=== PATIENT | female | born 1965 | race American Indian/Alaskan Native ===

== ENCOUNTER 2021-09-19 07:57 | Day surgery (SDC) | payer OTHER ==
[2021-09-19] MEDS ORDERED: LACTATED RINGERS 1,000 ML ONE (08:38)
[2021-09-19 09:52] LABS: Hematocrit 36.8 % (30.3-42.9); Hemoglobin 11.9 gm/dl (10.1-14.3); Mean Corpuscular HGB Conc 32 % (30-34); Mean Corpuscular Volume 94 fl (79-97); Platelet Count 108 K/mm3 (140-440); Red Blood Count 3.92 M/mm3 (3.65-5.03); Red Cell Distribution Width 16.3 % (13.2-15.2)
[2021-09-19] MEDS ORDERED: ACETAMINOPHEN 500 MG TAB PO NR (09:53)
[2021-09-19] MEDS ORDERED: MAGNESIUM OXIDE 400 MG TAB PO NR (09:53)
[2021-09-19] MEDS ORDERED: ONDANSETRON 4 MG/2 ML INJ IV PRN (09:53)
[2021-09-19] MEDS ORDERED: HYDROmorphone 0.5 MG/0.5 ML INJ IV PRN ×2 (09:53→10:30)
[2021-09-19] MEDS ORDERED: BUPIVACAINE/PF (0.5%) 5 MG/1 ML 30 ML VIAL INFILTRATI ONE (09:54)
[2021-09-19] MEDS ORDERED: EPINEPHrine/PF 1 MG/1 ML INJ ONE (09:54)
--- NOTE | 2021-09-19 09:54 | Anesthesia Day of Surgery ---
Anesthesia Day of Surgery - Day of Surgery Patient Examined: Yes Patient H&P Reviewed: Yes Patient is NPO: Yes
[2021-09-19 09:56] LABS: Blood Urea Nitrogen 13 mg/dL (7-17); Calcium 9.4 mg/dL (8.4-10.2); Hemolysis Index 18
[2021-09-19 09:57] LABS: BUN/Creatinine Ratio 19
--- NOTE | 2021-09-19 09:57 | Anesthesia Consultation ---
Anesthesia Consult and Med Hx Date of service: 09/19/21 - Airway Anesthetic Teeth Evaluation: Good ROM Head & Neck: Adequate Mental/Hyoid Distance: Adequate Mallampati Class: Class II Intubation Access Assessment: Good - Pre-Operative Health Status ASA Pre-Surgery Classification: ASA3 Proposed Anesthetic Plan: General - Pulmonary Hx Smoking: Yes (1/2 PPD X 5 YRS) Hx Sleep Apnea: Yes (DX SLEEP APNEA , NO CPAP USE) - Cardiovascular System Hx Hypertension: No (LOW BP) - Central Nervous System Hx Psychiatric Problems: Yes (Anxiety/Depression) - Gastrointestinal Hx Gastroesophageal Reflux Disease: No (Feeding tube;hx colitis) - Hematic Hx Anemia: Yes Hx Sickle Cell Disease: No - Other Systems Hx Cancer: No Hx Obesity: No - Additional Comments Anesthesia Medical History Comments: Patient reports K of 3.6 done last week. PLT 108
[2021-09-19] MEDS ORDERED: LACTATED RINGERS 1,000 ML IV SCH (10:00)
[2021-09-19] MEDS ORDERED: CELECOXIB 200 MG CAP PO NR (10:00)
[2021-09-19] MEDS ORDERED: ceFAZolin/Water 2 GM/20 ML 2 GM/20 ML SYRINGE IV ONE (10:45)
[2021-09-19] MEDS ORDERED: ceFAZolin/STERILE WATER 2 GM/20 ML SYRINGE IV NR (10:45)
[2021-09-19] MEDS ORDERED: propofoL 200 MG/20 ML VIAL IV ONE (11:04)
[2021-09-19] MEDS ORDERED: HYDROmorphone 1 MG/1 ML INJ ONE (11:04)
[2021-09-19] MEDS ORDERED: dexAMETHasone 20 MG/5 ML VIAL ONE (11:27)
[2021-09-19] MEDS ORDERED: LIDOCAINE MPF (2%) 20 MG/1 ML VIAL 5 ML ONE (11:27)
[2021-09-19] MEDS ORDERED: SODIUM CHLORIDE 0.9% IRRIG SOLN 3000 ML IR ONE (11:32)
[2021-09-19] MEDS ORDERED: BUPIVACAINE/PF (0.25%) 2.5 MG/ML 30 ML VIAL INFILTRATI ONE ×2 (11:37→11:57)
[2021-09-19] MEDS ORDERED: EPINEPHrine 1 MG/10 ML SYRINGE IV ONE (11:56)
[2021-09-19] MEDS ORDERED: SODIUM CHLORIDE 0.9% IRR 1,000 ML BOTTLE IR ONE (11:57)
[2021-09-19] MEDS ORDERED: KETOROLAC 30 MG/1 ML INJ ONE (12:26)
[2021-09-19] MEDS ORDERED: ONDANSETRON 4 MG/2 ML INJ ONE (12:26)
--- NOTE | 2021-09-19 12:44 | Discharge Summary ---
Short Stay Discharge Plan Weight Bearing Status: Weight Bear as Tolerated (With crutches) Wound: change dressing (In 48 hours) Durable Medical Equipment Needed Upon Discharge: Crutches Follow up with: ABELARDO MEHTA [Other] - 7 Days BEVERLY RODRIGUEZ II, MD [Staff Physician] - 14 Days
--- NOTE | 2021-09-19 13:01 | Operative Report ---
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 PROCEDURE PERFORMED: Left knee partial medial meniscectomy and lateral patellar facetectomy. SURGEON: Clayton Cohen II, MD LUMBER PILER: None. ANESTHESIA: General. COMPLICATIONS: None. DRAINS: None. SPECIMENS: None. TOURNIQUET TIME: 58 minutes. PREOPERATIVE MEDICATIONS: Ancef 2 grams administered 30 minutes prior to skin incision. INTRAOPERATIVE MEDICATIONS: 0.25% Marcaine plain, 20 mL. INDICATIONS: The patient is a 55-year-old female who has been having refractory pain in the left knee. Evaluation workup shows she does have a medial meniscus tear as well as chondromalacia patella, it was recommended the patient undergo surgical treatment in the form of partial lateral facetectomy and partial medial meniscectomy. INTRAOPERATIVE FINDINGS: Include grade 3 chondromalacia of the patellofemoral joint and tearing of the posterior horn of the medial meniscus and the red-white zone near the meniscal root with some grade 2 chondromalacia on the medial femoral condyle. TECHNIQUE: In the preoperative holding area, site was marked with surgical marking pen. Extremity was prepped and draped in sterile fashion in supine position. Standard anteromedial and anterolateral portals were placed. Diagnostic arthroscopy was performed. Patellofemoral joint was noted to have some grade 3 changes in the trochlea, some osteophytes along the medial and lateral facet of the femoral condyle. The ACL was intact. The medial joint line showed a tear in the posterior horn of the medial meniscus extending into the red-white zone. Using oscillating shaver and biter, the meniscus was debrided back to a stable rim. The lateral compartment appeared to be normal with signs and evidence of previous partial lateral meniscectomy. A lateral parapatellar incision was made. Dissection was carried down through the underlying soft tissue to the level of the patellar retinaculum, which was incised sharply. A 15 mm of the lateral facet of the patella was resected using an oscillating saw. The wound was irrigated. The retinacular incision was closed with 0 Vicryl, subcutaneous tissue closed with 2-0 Vicryl and skin closed with a 3-0 Prolene. Incisions were injected with 0.25% Marcaine. The patient was awakened and taken to recovery room in stable condition. POSTOPERATIVE PLAN: The patient will be weightbear as tolerated. Do physical therapy to work on range of motion exercise, told the patient we will see her back for a followup visit 2 weeks postop. TID: [id number] RECEIPT: [id number] ROSA M/KAYLAH
[2021-09-19] MEDS ORDERED: oxyCODONE /ACETAMINOPHEN 5-325MG TAB PO PRN (14:12)
[2021-09-19 17:42] VITALS: BP 115/61
--- NOTE | 2021-09-19 19:54 | Post Anesthesia Evaluation ---
- Post Anesthesia Evaluation Patient Participated: Yes Airway Patent: Yes Stable Respiratory Function: Yes Nausea/Vomiting: No Temp > 96.8F: Yes Pain Manageable: Yes Adequeate Hydration: Yes Anesthesia Complications: No Block Receding Appropriately: Not Applicable Patient on Ventilator: No
== END 2021-09-19 14:15 | disposition home or self-care (01) ==
LOC: OR 07:57
PROVIDERS: ATTEND Orthopaedic Surgery Sports Medicine
DX: S83.242A Other tear of medial meniscus, current injury, left knee, initial encounter (principal); M23.304 Other meniscus derangements, unspecified medial meniscus, left knee; F17.210 Nicotine dependence, cigarettes, uncomplicated; I10 Essential (primary) hypertension; G47.30 Sleep apnea, unspecified; K21.9 Gastro-esophageal reflux disease without esophagitis; F32.9 Major depressive disorder, single episode, unspecified; F41.9 Anxiety disorder, unspecified; D64.9 Anemia, unspecified; Z98.890 Other specified postprocedural states; Z79.899 Other long term (current) drug therapy
CPT/HCPCS: 27599; 29881; 36415; 80048; 85027; 88304; 88311; J0171; J0690; J1100; J1170; J1885; J2405; J2704; J3490; J7120

== ENCOUNTER 2021-12-04 06:18 | Day surgery (SDC) | payer OTHER ==
[~2021-12-04 06:18] MED LIST: ACETAMINOPHEN 500 MG TAB PO SCH; GABAPENTIN 300 MG CAP PO NR; LACTATED RINGERS 1,000 ML IV SCH; MIDAZOLAM 2 MG/2 ML INJ IV NR; ceFAZolin/STERILE WATER 2 GM/20 ML SYRINGE IV NR
[2021-12-04] MEDS ORDERED: BACTERIOSTATIC SODIUM CHLORIDE 0.9% 30 ML VIAL INFILTRATI ONE (06:56)
--- NOTE | 2021-12-04 07:16 | Anesthesia Consultation ---
Anesthesia Consult and Med Hx Date of service: 12/04/21 - Airway Anesthetic Teeth Evaluation: Good ROM Head & Neck: Adequate Mental/Hyoid Distance: Adequate Mallampati Class: Class II Intubation Access Assessment: Probably Good - Pre-Operative Health Status ASA Pre-Surgery Classification: ASA3 Proposed Anesthetic Plan: General - Pulmonary Hx Smoking: Yes (1/2 PPD) Hx Respiratory Symptoms: No Hx Sleep Apnea: Yes (no CPAP) - Cardiovascular System Hx Hypertension: No (hypotension on midodrine weaned to QOD; last dose 12/03/21) - Central Nervous System CVA: No Hx Psychiatric Problems: Yes (Anxiety/Depression) - Endocrine Hx Renal Disease: No Hx Liver Disease: No Hx Insulin Dependent Diabetes: No Hx Non-Insulin Dependent Diabetes: No Hx Thyroid Disease: No - Hematic Hx Anemia: Yes - Additional Comments Anesthesia Medical History Comments: No hx anesthetic complications.
[2021-12-04] MEDS ORDERED: ONDANSETRON 4 MG/2 ML INJ IV PRN (07:17)
[2021-12-04] MEDS ORDERED: oxyCODONE /ACETAMINOPHEN 5-325MG TAB PO PRN (07:17)
--- NOTE | 2021-12-04 07:17 | Anesthesia Day of Surgery ---
Anesthesia Day of Surgery - Day of Surgery Patient Examined: Yes Patient H&P Reviewed: Yes Patient is NPO: Yes
[2021-12-04 07:27] LABS: Hematocrit 38.1 % (30.3-42.9); Hemoglobin 13.2 gm/dl (10.1-14.3); Mean Corpuscular HGB Conc 35 % (30-34); Mean Corpuscular Volume 92 fl (79-97); Platelet Count 129 K/mm3 (140-440); Red Blood Count 4.13 M/mm3 (3.65-5.03); Red Cell Distribution Width 15.1 % (13.2-15.2)
[2021-12-04] MEDS ORDERED: EPINEPHrine/PF 1 MG/1 ML INJ ONE (07:29)
[2021-12-04] MEDS ORDERED: BUPIVACAINE-EPINEPHRINE/PF 0.5%-1:200,000 (30 ML) VIAL INFILTRATI ONE (07:29)
[2021-12-04 07:40] LABS: BUN/Creatinine Ratio 16; Blood Urea Nitrogen 13 mg/dL (7-17); Calcium 9.6 mg/dL (8.4-10.2); Hemolysis Index 13
[2021-12-04] MEDS ORDERED: dexAMETHasone 20 MG/5 ML VIAL ONE (07:45)
[2021-12-04] MEDS ORDERED: ONDANSETRON 4 MG/2 ML INJ ONE (07:45)
[2021-12-04] MEDS ORDERED: LIDOCAINE MPF (2%) 20 MG/1 ML VIAL 5 ML ONE (07:45)
[2021-12-04] MEDS ORDERED: propofoL 200 MG/20 ML VIAL IV ONE (07:46)
[2021-12-04] MEDS ORDERED: HYDROmorphone 1 MG/1 ML INJ ONE (07:46)
[2021-12-04] MEDS ORDERED: ePHEDrine SULFATE 50 MG/1 ML INJ ONE (07:50)
[2021-12-04] MEDS ORDERED: BUPIVACAINE/PF (0.25%) 2.5 MG/ML 30 ML VIAL INFILTRATI ONE (08:07)
[2021-12-04] MEDS ORDERED: SODIUM CHLORIDE 0.9% IRRIG SOLN 3000 ML IR ONE (08:35)
[2021-12-04] MEDS ORDERED: BUPIVACAINE/PF (0.5%) 5 MG/1 ML 30 ML VIAL INFILTRATI ONE (08:36)
[2021-12-04] MEDS ORDERED: KETOROLAC 30 MG/1 ML INJ ONE (08:50)
--- NOTE | 2021-12-04 08:57 | Discharge Summary ---
Short Stay Discharge Plan Activity: no restrictions Weight Bearing Status: Weight Bear as Tolerated Diet: regular Wound: change dressing (in 48 hours) Follow up with: BEVERLY RODRIGUEZ II, MD [Staff Physician] - 7 Days
[2021-12-04] MEDS: HYDROmorphone 0.5 MG/0.5 ML INJ IV PRN ×2 (09:09→09:24)
[2021-12-04 10:33] VITALS: BP 112/59
--- NOTE | 2021-12-04 11:47 | Post Anesthesia Evaluation ---
- Post Anesthesia Evaluation Patient Participated: Yes Airway Patent: Yes Stable Respiratory Function: Yes Nausea/Vomiting: No Temp > 96.8F: Yes Pain Manageable: Yes Adequeate Hydration: Yes Anesthesia Complications: No
--- NOTE | 2021-12-05 06:27 | Operative Report ---
DATE OF SURGERY: 12/04/2021 PREOPERATIVE DIAGNOSIS: Left hip trochanteric bursitis. POSTOPERATIVE DIAGNOSIS: Left hip trochanteric bursitis. PROCEDURE PERFORMED: Left hip trochanteric bursectomy with IT band release performed arthroscopically. SURGEON: Clayton Cohen II, MD MEDICAL PHOTOGRAPHER: None. ANESTHESIA: General. COMPLICATIONS: None. DRAINS: None. SPECIMENS: None. TOURNIQUET TIME: Not applicable. Examination under anesthesia revealed full range of motion, no instability. OPERATIVE FINDINGS: Include significant bursal inflammation just underneath the IT band. INTRAOPERATIVE MEDICATIONS: Include 0.25% Marcaine plain, 20 mL PREOPERATIVE MEDICATIONS: Ancef 2 grams administered 30 minutes prior to skin incision. INDICATIONS: The patient is a 56-year-old female who has been having refractory pain in her left hip. Evaluation workup was suggestive of a trochanteric bursitis. The patient had multiple cortisone injections, physical therapy and anti-inflammatory medications, none of which seemed to improve her symptoms. Imaging studies were suggestive of a trochanteric bursitis and the patient responded to cortisone injections temporarily. Therefore, it was felt that the arthroscopic IT band release and trochanteric bursectomy were indicated. DESCRIPTION OF PROCEDURE: In the preoperative holding area, site was marked with surgical marking pen. Extremity was prepped and draped in sterile fashion in a lateral decubitus position. Axillary roll was placed and all bony prominences were well padded. The subcutaneous tissue was injected with normal saline and then 2 portals, 1 proximal and 1 distal were made just proximal and distal to the greater trochanter. Subcutaneous tissue was debrided to reveal any underlying IT band, the IT band was split in line with its fibers, revealing the underlying trochanteric bursa, which was noted to have significant bursal inflammation. Using a combination of [employer]thro[employer] radiofrequency wand and shaver, the trochanteric bursa was debrided. The hip was taken through full range of motion to ensure that the full extent of the bursa was removed. The arthroscope was then removed. Incision closed with 3-0 nylon. Portal sites were injected with 0.25% Marcaine plain. Sterile dressing was applied. The patient was awakened and taken to recovery room in stable condition. POSTOPERATIVE PLAN: The patient will be weightbear as tolerated. Do physical therapy, work on range of motion exercise. We will plan on seeing the patient back for a followup visit 2 weeks postop. TID: [id number] RECEIPT: [id number] ROSA M/JOANNE
== END 2021-12-04 10:20 | disposition home or self-care (01) ==
LOC: OR 06:18
PROVIDERS: ATTEND Orthopaedic Surgery Sports Medicine
DX: M70.62 Trochanteric bursitis, left hip (principal); F17.210 Nicotine dependence, cigarettes, uncomplicated; K21.9 Gastro-esophageal reflux disease without esophagitis; F32.9 Major depressive disorder, single episode, unspecified; F41.9 Anxiety disorder, unspecified; D64.9 Anemia, unspecified; Z79.899 Other long term (current) drug therapy; Z87.440 Personal history of urinary (tract) infections; Z98.890 Other specified postprocedural states
CPT/HCPCS: 29999; 36415; 80048; 85027; J0171; J0690; J1100; J1170; J1885; J2250; J2405; J2704; J3490